=== PATIENT | male | born 1995 | race Caucasian/White ===

== ENCOUNTER 2018-03-31 18:37 | Emergency (ER) | payer OTHER ==
[~2018-03-31] VITALS: Ht 167.6 cm; Wt 81.6 kg
[2018-03-31] MEDS ORDERED: ZANTAC300 MG (18:54)
== END 2018-03-31 21:38 | disposition home or self-care (01) ==
LOC: ER 18:37
DX: K29.60 Other gastritis without bleeding (principal)